=== PATIENT | male | born 1990 | race Hispanic/Latino ===

== ENCOUNTER 2024-04-11 00:16 | Observation (INO) | payer OTHER ==
[~2024-04-11] VITALS: Ht 182.9 cm; Wt 107.2 kg
[2024-04-11] VITALS (8 sets, daily range): BP systolic 119–149; BP diastolic 70–81; PULSE 91–102; RESP 16–18; TEMP 97.7–98.7; O2SAT 96–99
[2024-04-11] MEDS ORDERED: MORPHINE SULFATE ONE (00:34)
[2024-04-11] MEDS: MORPHINE SULFATE IM STA (00:35)
[2024-04-11] MEDS: MORPHINE SULFATE IV PRN (04:16)
== END 2024-04-11 11:35 | disposition home or self-care (01) ==
LOC: ER 00:16 → OBS 02:57
PROVIDERS: ADMIT Orthopaedic Surgery; ATTEND Orthopaedic Surgery
DX: S82.62XA Displaced fracture of lateral malleolus of left fibula, initial encounter for closed fracture (principal); W19.XXXA Unspecified fall, initial encounter; Y93.89 Activity, other specified; Y92.89 Other specified places as the place of occurrence of the external cause; Y99.8 Other external cause status
CPT/HCPCS: 96372; 96374; 99284; 73610; G0378 ×9; J2270